=== PATIENT | female | born 1955 | race Caucasian/White ===

== ENCOUNTER → 2018-06-03 09:09 | Outpatient (CLI) | payer OTHER, SELFPAY ==
--- NOTE | 2018-06-03 | DI.MG.S_ITS ---
BILATERAL DIGITAL SCREENING MAMMOGRAM 3D/2D WITH CAD: 06/03/2018 CLINICAL: Routine screening. Family history of breast cancer. Comparison is made to exams dated: 10/22/2016 mammogram, 01/28/2014 mammogram - [facility], and 01/10/2013 mammogram - [facility]. There are scattered fibroglandular elements in both breasts. Current study was also evaluated with a Computer Aided Detection (CAD) system. There are benign calcifications in both breasts. No significant masses, calcifications, or other findings are seen in either breast. There has been no significant interval change. IMPRESSION: There is no mammographic evidence of malignancy. A 1 year screening mammogram is recommended. This exam was interpreted at Station ID: [id number]. NOTE: For mammograms, a report in lay terms will be sent to the patient. Approximately 15% of breast malignancies will not be visualized mammographically. In the management of a palpable breast mass, a negative mammogram must not discourage biopsy of a clinically suspicious lesion. Electronically Signed By: Rigoberto wood/albino:06/05/2018 12:50:04 copy to: LENCHO RANDALL letter sent: Normal Exam ACR BI-RADS Category 2: Benign Finding(s) 3342F
== END ==
PROVIDERS: PCP Internal Medicine; Visit Provider Internal Medicine
DX: Z12.31 Encounter for screening mammogram for malignant neoplasm of breast (principal); Z80.3 Family history of malignant neoplasm of breast
CPT/HCPCS: 77063; 77067

== ENCOUNTER 2019-03-13 07:37 | Emergency (ER) | payer OTHER, SELFPAY ==
[2019-03-13 07:44] VITALS: BP 169/103; PULSE 94; RESP 20; TEMP 37.2; O2SAT 94; BMI 26.6
--- NOTE | 2019-03-13 07:46 | DI.RAD.S_ITS ---
PROCEDURE: XR CHEST 2V INDICATIONS: shortness of breath TECHNIQUE: 2 views of the chest were acquired. COMPARISON: None. FINDINGS: Surgical changes and devices: None. Lungs and pleura: There is indistinct confluent opacities in the right lower lobe. Left lung appears clear. No pleural effusions or pneumothorax. Mediastinum: Mediastinal contours are normal. Heart size is normal. Bones and chest wall: No suspicious bony abnormalities. Soft tissues appear unremarkable. IMPRESSION: 1. Confluent indistinct opacities in the right lower lobe suggestive of developing consolidation possibly due to pneumonia. This may also represent a region of atelectasis. Dictated by: Kale Olivia M.D. on 03/13/2019 at 8:38 Approved by: Kale Olivia M.D. on 03/13/2019 at 8:42
--- NOTE | 2019-03-13 07:59 | ED_ITS ---
HPI - SOB/Dyspnea General Chief Complaint: Shortness of Breath/Dyspnea Stated Complaint: cough,can't sleep,difficulty breathing Time Seen by Provider: 03/13/19 07:47 Source: patient Mode of arrival: Ambulatory History of Present Illness HPI Narrative: Patient comes emergency department complaining of a cough with sputum production for the last 10 days. The patient states she has just been feeling fatigued and generally weak, and has missed work for week and half because of it. Patient states that her is finishing treatment for pneumonia and that she is concerned she may have the same. She states she got the flu shot this season. She states she is otherwise healthy and does not have any underlying heart or lung problems. She does not smoke. Patient states that she has not been running fevers as far she knows. She denies any pain. She states she has been incontinent of urine when she coughs. No nausea vomiting. No sore throat. Patient denies any other complaints at this time. Related Data Home Medications Medication Instructions Recorded Confirmed cetirizine 10 mg PO QDAY #0 tab 12/06/15 fluticasone propionate 1 spray INTRANASAL QDAY #0 12/06/15 hydrochlorothiazide 25 mg PO QDAY #0 12/06/15 levothyroxine 0.112 mg PO QDAY #0 12/06/15 losartan 50 mg PO QDAY #0 12/06/15 montelukast [Singulair] 10 mg PO QDAY #0 tab 12/06/15 potassium chloride 10 meq PO Q DAY #0 12/06/15 Previous Rx's Medication Instructions Recorded doxycycline hyclate 100 mg PO Q12H #20 cap 12/06/15 doxycycline hyclate 100 mg PO BID #14 cap 03/13/19 Allergies Allergy/AdvReac Type Severity Reaction Status Date / Time erythromycin base Allergy Unknown Verified 03/13/19 07:44 [ERYTHROMYCIN BASE] Penicillins [PENICILLINS] Allergy Unknown Verified 03/13/19 07:44 Sulfa (Sulfonamide Allergy Unknown Verified 03/13/19 07:44 Antibiotics) [SULFA (SULFONAMIDE ANTIBIOTICS)] Review of Systems Constitutional Constitutional: Denies chills, Denies fatigue, Denies fever(s), Denies frequent falls, Denies lethargy and Denies weakness Eyes Eyes: Denies change in vision, Denies eye discharge, Denies irritation and Denies loss of vision ENT Ears, Nose, Mouth, and Throat: Denies change in voice, Denies dizziness, Denies neck pain, Denies sore throat and Denies throat swelling Cardiovascular Cardiovascular: Denies chest pain, Denies irregular heart rhythm, Denies lightheadedness, Denies palpitations, Reports dyspnea and Denies orthopnea Respiratory Respiratory: Reports cough, Reports dyspnea and Denies wheezing Gastrointestinal Gastrointestinal: Denies abdominal pain, Denies change in bowel habits, Denies diarrhea, Denies nausea and Denies vomiting Genitourinary Genitourinary: Denies hematuria, Denies flank pain, Denies urinary incontinence and Denies urinary urgency Musculoskeletal Musculoskeletal: Denies back pain, Denies muscle weakness, Denies neck pain, Denies numbness and Denies tingling Integumentary/Breasts Skin/Breast: Denies pruritus, Denies erythema, Denies rash and Denies wounds Neurologic Neurologic: Denies behavioral changes, Denies confusion, Denies dizziness, Denies frequent falls, Denies loss of vision, Denies numbness, Denies tingling and Denies weakness Psychiatric Psychiatric: Denies anxiety, Denies behavioral changes, Denies confusion, Denies depression, Denies homicidal ideation and Denies suicidal ideation Endocrine Endocrine: Denies fatigue, Denies flushing and Denies palpitations Hematologic/Lymphatic Hematologic/Lymphatic: Denies easy bruising Allergic/Immunologic Allergic/Immunologic: Denies urticaria, Denies throat swelling and Denies wheezing Patient History Medical History HTN (hypertension) (Acute) Social History Smoking Status: Never smoker Smoking Status: Never smoker Substance Use Type: does not use Exam Initial Vital Signs Initial Vital Signs: Vital Signs Temperature 98.9 F 03/13/19 07:44 Pulse Rate 94 H 03/13/19 07:44 Respiratory Rate 20 03/13/19 07:44 Blood Pressure 169/103 H 03/13/19 07:44 Pulse Oximetry 94 03/13/19 07:44 Const General: cooperative and well developed Nutritional Appearance: well nourished Orientation: alert, awake, oriented x3 and not confused HENMT Head: normocephalic and atraumatic Ears: external ears normal Nose: external nose normal and No nasal discharge Face and sinus: face symmetric and No dry mucous membranes Mouth: oral mucosae normal and moist mucous membranes Teeth and gingiva: dentition normal Eyes General: appearance normal, both eyes and all related structures Eyelids: eyelids normal Conjunctivae: conjunctivae normal Sclera: sclerae normal Pupils: PERRL EOM: EOM intact bilaterally Neck Neck: normal visual inspection, trachea midline, No lymphadenopathy, No midline deformity and No JVD Lymphatic: No lymphedema Chest Chest: normal inspection of the chest Resp Effort & Inspection: normal respiratory effort, able to speak in complete sentences, no respiratory distress and no use of accessory muscles Auscultation: no rhonchi and no wheezes Other: Clear to auscultation bilaterally, other than mild crackles in the left lower lobe. Cardio Rate: regular rate Rhythm: regular rhythm Heart Sounds: no click, no gallops, no murmurs and no rubs Pulses: normal peripheral pulses GI Inspection: non-distended Palpation: soft, no hepatosplenomegaly, No guarding, No pulsatile mass and No tender Auscultation: normal bowel sounds Back/Spine/Pelvis Back: No CVA tenderness Cervical Spine: cervical ROM normal and No pain with cervical ROM Thoracic/Lumbar Spine: thoracic and lumbar spine normal to inspection Skin General: no rashes or lesions noted, No jaundice and No petechiae Neuro General: alert, oriented x3, gait normal and no focal motor deficits Speech: speech normal Extrem General: full ROM, no clubbing, cyanosis or edema, no pedal edema and no calf tenderness Psych Appearance: well kempt Mental Status: mental status grossly normal Attitude: cooperative Thought Content: normal and suicidality Judgment: judgment good Course Course Course Narrative: Patient was worked up with labs, EKG, and chest x-ray. Found have a small area of atelectasis versus pneumonia, and was started on antibiotics for this. The patient was found to have desaturations when relaxed and breathing shallowly, but she ambulated throughout the emergency department, including to and from the bathroom several times, without difficulty and without respiratory complaints. It was also found that when the patient would awaken and started conversing or breathing more deeply, her sats immediately improved. An ABG was performed by respiratory, but was contaminated with venous blood, so was unreliable. I discussed all this with the patient, who desired to go home. I felt this was reasonable. We've discussed the findings on workup, as well as the need for antibiotics. We've discussed home management of the symptoms, as well as the usual indications for return. Orders Ordered: Discontinued Medications Albuterol (Ventolin) 2.5 mg INH NOW ONE Stop: 03/13/19 10:11 Last Admin: 03/13/19 10:15 Dose: 2.5 mg Documented by: GIO Albuterol/Ipratropium (Duoneb) 3 ml INH NOW ONE Stop: 03/13/19 08:05 Last Admin: 03/13/19 08:22 Dose: 3 ml Documented by: GIO Doxycycline Hyclate (Vibramycin) 100 mg PO NOW ONE Stop: 03/13/19 08:51 Last Admin: 03/13/19 09:07 Dose: 100 mg Documented by: PINO Ceftriaxone Sodium/Dextrose (Rocephin) 2 gm in 50 mls @ 100 mls/hr IV NOW ONE Stop: 03/13/19 09:19 Last Infusion: 03/13/19 09:32 Dose: 0 mls/hr Documented by: Admin: 03/13/19 09:07 Dose: 100 mls/hr Documented by: PINO Prednisone (Deltasone) 60 mg PO NOW ONE Stop: 03/13/19 08:05 Last Admin: 03/13/19 08:15 Dose: 60 mg Documented by: MARNI Vital Signs Vital signs: Vital Signs - 8 hr 03/13/19 07:44 Temperature 98.9 F Pulse Rate 94 H Respiratory Rate 20 Blood Pressure 169/103 H Pulse Oximetry 94 MDM - SOB/Dyspnea Medical Records Attestation: I reviewed the patient's medical records. Lab Data Attestation: I reviewed the patient's lab results. Result diagrams: 03/13/19 08:02 03/13/19 08:02 Labs: Lab Results 03/13/19 03/13/19 03/13/19 Range/Units 08:02 08:02 08:02 WBC 12.0 H (4.5-11.0) X10^3/uL RBC 4.08 (4.0-5.2) X10^6/uL Hgb 12.6 (12.0-16.0) g/dL Hct 35.9 L (36-46) % MCV 87.9 (80-100) fL MCH 30.8 (26-34) PG MCHC 35.0 (30-36) % RDW 14.0 (11.6-14.8) % Plt Count 220 (150-400) X10^3/uL Neut % (Auto) 78.5 H (50-75) % Lymph % (Auto) 11.6 L (25-40) % [place] % (Auto) 7.2 (3-14) % Eos % (Auto) 2.2 (2-4) % Baso % (Auto) 0.5 (0-2) % Neut # (Auto) 9400 H (3290-7294) /uL Lymph # (Auto) 1400 (9214-4424) /uL [place] # (Auto) 900 (0-900) /uL Eos # (Auto) 300 (0-450) /uL Baso # (Auto) 100 (0-100) /uL ABG pH (7.35-7.45) ABG pCO2 (35-45) mmHg ABG pO2 (80-100) mmHg ABG HCO3 (22-26) mmol/L ABG Total CO2 (21-31) mmol/L ABG O2 Saturation (95-100) % ABG Base Excess (-2-2) mmol/L FiO2 Sodium 136 L (137-145) mmol/L Potassium 4.0 (3.4-5.1) mmol/L Chloride 94 L (98-107) mmol/L Carbon Dioxide 34 H (22-32) mmol/L BUN 12 (7-17) mg/dL Creatinine 0.80 (0.52-1.04) mg/dL Estimated GFR > 60.0 (>60) mL/min BUN/Creatinine Ratio 15.0 (6-22) Glucose 154 H (80-110) mg/dL Lactate 1.0 (0.7-2.1) mmol/L Calcium 10.1 (8.4-10.2) mg/dL Total Bilirubin 0.7 (0.2-1.3) mg/dL AST 23 (14-36) IU/L ALT 21 (<35) IU/L Alkaline Phosphatase 97 (38-126) U/L Total Protein 7.3 (6.3-8.2) g/dL Albumin 4.1 (3.5-5.0) g/dL Globulin 3.2 (1.7-4.1) g/dL Albumin/Globulin Ratio 1.3 (1.0-2.8) Influenza A (RT-PCR) (NEGATIVE) Influenza B (RT-PCR) (NEGATIVE) 03/13/19 03/13/19 Range/Units 08:50 10:52 WBC (4.5-11.0) X10^3/uL RBC (4.0-5.2) X10^6/uL Hgb (12.0-16.0) g/dL Hct (36-46) % MCV (80-100) fL MCH (26-34) PG MCHC (30-36) % RDW (11.6-14.8) % Plt Count (150-400) X10^3/uL Neut % (Auto) (50-75) % Lymph % (Auto) (25-40) % [place] % (Auto) (3-14) % Eos % (Auto) (2-4) % Baso % (Auto) (0-2) % Neut # (Auto) (3460-4473) /uL Lymph # (Auto) (8146-7973) /uL [place] # (Auto) (0-900) /uL Eos # (Auto) (0-450) /uL Baso # (Auto) (0-100) /uL ABG pH 7.46 H (7.35-7.45) ABG pCO2 40.0 (35-45) mmHg ABG pO2 52 L (80-100) mmHg ABG HCO3 29 H (22-26) mmol/L ABG Total CO2 30 (21-31) mmol/L ABG O2 Saturation 88 L (95-100) % ABG Base Excess 5.0 H (-2-2) mmol/L FiO2 0.21 Sodium (137-145) mmol/L Potassium (3.4-5.1) mmol/L Chloride (98-107) mmol/L Carbon Dioxide (22-32) mmol/L BUN (7-17) mg/dL Creatinine (0.52-1.04) mg/dL Estimated GFR (>60) mL/min BUN/Creatinine Ratio (6-22) Glucose (80-110) mg/dL Lactate (0.7-2.1) mmol/L Calcium (8.4-10.2) mg/dL Total Bilirubin (0.2-1.3) mg/dL AST (14-36) IU/L ALT (<35) IU/L Alkaline Phosphatase (38-126) U/L Total Protein (6.3-8.2) g/dL Albumin (3.5-5.0) g/dL Globulin (1.7-4.1) g/dL Albumin/Globulin Ratio (1.0-2.8) Influenza A (RT-PCR) Flu a negative (NEGATIVE) Influenza B (RT-PCR) Flu b negative (NEGATIVE) Imaging Data Chest x-ray: Radiologist's Impression: We've discussed Discharge Plan Departure Patient Disposition: Home Clinical Impression: Community acquired pneumonia Qualifiers: Laterality: right Lung location: lower lobe of lung Qualified Code(s): J18.9 - Pneumonia, unspecified organism Discharge Date/Time: 03/13/19 11:25 Instructions: DI for Pneumonia -- Adult, DI for Viral Upper Respiratory Infection -- Adult Activity Restrictions/Additional Instructions: Your labs look good. Your chest x-ray shows a small area of pneumonia in the bottom of your right lung. This should clear up easily with antibiotics, which have been started today. Please take the remainder of your antibiotics every day, as directed, until the course is finished. If you do not notice any improvement in your symptoms by the time the antibiotics are done, please follow-up with your primary care physician. Prescriptions: New doxycycline hyclate 100 mg capsule 100 mg PO BID Qty: 14 RF: 0 No Action losartan 50 MG tablet 50 mg PO QDAY Qty: 0 RF: 0 hydrochlorothiazide 25 MG tablet 25 mg PO QDAY Qty: 0 RF: 0 levothyroxine 112 MCG tablet 0.112 mg PO QDAY Qty: 0 RF: 0 potassium chloride 10 MEQ capsule, extended release 10 meq PO Q DAY Qty: 0 RF: 0 cetirizine 10 MG tablet 10 mg PO QDAY Qty: 0 RF: 0 montelukast [Singulair] 10 MG tablet 10 mg PO QDAY Qty: 0 RF: 0 fluticasone propionate 16 GM spray,suspension 1 spray Intranasal QDAY Qty: 0 RF: 0 doxycycline hyclate 100 MG capsule 100 mg PO Q12H Qty: 20 RF: 0 Referrals: Tracee Orantes MD [Primary Care Provider] -
[2019-03-13 08:11] LABS: Add Manual Diff / Slide Review NO; Basophils Absolute Auto 100 /uL (0-100); Basophils Percent Auto 0.5 % (0-2); Eosinophils Absolute Auto 300 /uL (0-450); Eosinophils Percent Auto 2.2 % (2-4); Hematocrit 35.9 % (36-46); Hemoglobin 12.6 g/dL (12.0-16.0); Lymphocytes Absolute Auto 1400 /uL (1100-4500); Lymphocytes Percent Auto 11.6 % (25-40); Mean Corpuscular Hemoglobin 30.8 PG (26-34); Mean Corpuscular Volume 87.9 fL (80-100); Monocytes Absolute Auto 900 /uL (0-900); Monocytes Percent Auto 7.2 % (3-14); Neutrophils Absolute Auto 9400 /uL (1500-7000); Neutrophils Percent Auto 78.5 % (50-75); Platelet Count 220 X10^3/uL (150-400); Red Blood Cell Count 4.08 X10^6/uL (4.0-5.2)
[2019-03-13] MEDS: predniSONE 20 MG TABLET 60 MG PO (08:15)
[2019-03-13] MEDS: ALBUTEROL/IPRATROPIUM 3 ML AMPUL INH (08:22)
[2019-03-13 08:23] LABS: Alanine Aminotransferase 21 IU/L (<35); Albumin 4.1 g/dL (3.5-5.0); Albumin Globulin Ratio 1.3 (1.0-2.8); Alkaline Phosphatase 97 U/L (38-126); Aspartate Aminotransferase 23 IU/L (14-36); Bilirubin Total 0.7 mg/dL (0.2-1.3); Blood Urea Nitrogen 12 mg/dL (7-17); Calcium 10.1 mg/dL (8.4-10.2); Carbon Dioxide 34 mmol/L (22-32); Chloride 94 mmol/L (98-107); Estimated Glomerular Filt Rate > 60.0 mL/min (>60); Globulin 3.2 g/dL (1.7-4.1); Glucose 154 mg/dL (80-110); HEMOLYSIS < 15 (0-50); Sodium 136 mmol/L (137-145); Total Protein 7.3 g/dL (6.3-8.2)
[2019-03-13 08:29] VITALS: PULSE 94; RESP 18; O2SAT 98
[2019-03-13] MEDS: CEFTRIAXONE 2 GM/50 ML FROZ.PIGGY IV (09:07)
[2019-03-13] MEDS: DOXYCYCLINE HYCLATE 100 MG TABLET PO (09:07)
[2019-03-13 09:33] VITALS: BP 143/75; PULSE 88; RESP 24; TEMP 36.6; O2SAT 96
[2019-03-13 09:36] LABS: Influenza A - CEPHEID Flu A NEGATIVE (NEGATIVE); Influenza B - CEPHEID Flu B NEGATIVE (NEGATIVE)
--- NOTE | 2019-03-13 10:08 | PC.NURSE ---
Patient with O2 saturations mid 80's but increases to 100% with cough and deep breathing exercises; Patient able to talk in full sentences and ambulated to bathroom with no difficulties;
[2019-03-13] MEDS: ALBUTEROL 2.5 MG/3 ML NEB (ADULT) INH (10:15)
[2019-03-13 10:17] VITALS: PULSE 88; RESP 18; O2SAT 96
--- NOTE | 2019-03-13 10:33 | PC.NURSE ---
Patient ambulated to bathroom - patient O2 saturation 90% after ambulation; Patient states I feel miserable and short of breath because I can't take a deep breath in. It make me cough.
[2019-03-13 11:11] LABS: HCO3 ABG 29 mmol/L (22-26); Oxygen Saturation ABG 88 % (95-100); PO2 ABG 52 mmHg (80-100); TCO2 ABG 30 mmol/L (21-31); pH ABG 7.46 (7.35-7.45)
[2019-03-13 11:12] LABS: Fractionated Inspired Oxygen 0.21
[2019-03-13 11:25] VITALS: BP 136/64; PULSE 88; RESP 22; TEMP 36.4; O2SAT 95
== END 2019-03-13 11:25 | disposition home or self-care (01) ==
PROVIDERS: Emergency Provider Emergency Medicine; PCP Internal Medicine
DX: J18.9 Pneumonia, unspecified organism (principal); I10 Essential (primary) hypertension; R06.02 Shortness of breath
CPT/HCPCS: 36415; 36600; 71046; 80053; 82805; 83605; 85025; 87502; 93005; 94640; 96365; 99284; 99285; J0696; J7613

== ENCOUNTER 2019-05-17 08:18 | Observation (INO) | payer OTHER, SELFPAY ==
[2019-05-17] VITALS (15 sets, daily range): BP systolic 118–167; BP diastolic 64–83; PULSE 74–97; RESP 14–25; TEMP 35.7–37.9; O2SAT 92–97; BMI 27.4
--- NOTE | 2019-05-17 08:34 | ED_ITS ---
HPI - URI/Sore Throat General Chief Complaint: Upper Respiratory Symptoms Stated Complaint: bad cough,fever last night, chills Time Seen by Provider: 05/17/19 08:20 Source: patient Mode of arrival: Ambulatory Limitations: no limitations History of Present Illness HPI Narrative: 64-year-old female nonsmoker presents with her in the chief complaint of a few days of headache, fever, cough that reminds her of the pneumonia she presented with in February. She has had no nausea or vomiting. She denies any change in bowel habits. She denies any dysuria, frequency or urgency. She denies recent travel or exposure to persons with known or suspected subramanian virus. Complaint: fever and cough Onset (ago): day(s) Duration: constant Severity: moderate Relieving factors: nothing Exacerbating factors: nothing Description of mucous: clear Able to tolerate fluids by mouth: Yes Context: sick contacts Associated symptoms: fever Treatments prior to arrival: none Related Data Home Medications Medication Instructions Recorded Confirmed cetirizine 10 mg PO DAILY #0 tab 12/06/15 05/17/19 fluticasone propionate 1 spray INTRANASAL DAILY #0 12/06/15 05/17/19 hydrochlorothiazide 25 mg PO DAILY #0 12/06/15 05/17/19 levothyroxine 0.112 mg PO DAILY #0 12/06/15 05/17/19 montelukast [Singulair] 10 mg PO QPM #0 tab 12/06/15 05/17/19 Super B Vitamin 1 tab PO DAILY 05/17/19 05/17/19 cholecalciferol (vitamin D3) 5,000 unit PO DAILY 05/17/19 05/17/19 [Vitamin D3] oxybutynin chloride 10 mg PO DAILY 05/17/19 05/17/19 potassium chloride 10 meq PO DAILY 05/17/19 05/17/19 propranolol 120 mg PO QPM 05/17/19 05/17/19 trazodone 50 mg PO QPM 05/17/19 05/17/19 Allergies Allergy/AdvReac Type Severity Reaction Status Date / Time erythromycin base Allergy Unknown Verified 05/17/19 08:31 [ERYTHROMYCIN BASE] Penicillins [PENICILLINS] Allergy Unknown Verified 05/17/19 08:31 Sulfa (Sulfonamide Allergy Unknown Verified 05/17/19 08:31 Antibiotics) [SULFA (SULFONAMIDE ANTIBIOTICS)] Review of Systems Constitutional Constitutional: Denies fatigue, Reports fever(s), Denies frequent falls, Denies lethargy and Denies weakness Eyes Eyes: Denies change in vision, Denies eye discharge, Denies irritation and Denies loss of vision ENT Ears, Nose, Mouth, and Throat: Denies change in voice, Denies dizziness, Denies neck pain, Denies sore throat and Denies throat swelling Cardiovascular Cardiovascular: Denies chest pain, Denies irregular heart rhythm, Denies lightheadedness, Denies palpitations, Denies dyspnea, Denies dyspnea on exertion and Denies orthopnea Respiratory Respiratory: Reports cough, Denies dyspnea, Denies dyspnea on exertion and Reports wheezing Gastrointestinal Gastrointestinal: Denies abdominal pain, Denies change in bowel habits, Denies diarrhea, Denies nausea and Denies vomiting Genitourinary Genitourinary: Denies hematuria, Denies flank pain, Denies urinary incontinence and Denies urinary urgency Musculoskeletal Musculoskeletal: Denies back pain, Denies muscle weakness, Denies neck pain, Denies numbness and Denies tingling Integumentary/Breasts Skin/Breast: Denies pruritus, Denies erythema, Denies rash and Denies wounds Neurologic Neurologic: Denies behavioral changes, Denies confusion, Denies dizziness, Denies frequent falls, Denies loss of vision, Denies numbness, Denies tingling and Denies weakness Psychiatric Psychiatric: Denies anxiety, Denies behavioral changes, Denies confusion, Denies depression, Denies homicidal ideation and Denies suicidal ideation Endocrine Endocrine: Denies fatigue, Denies flushing and Denies palpitations Hematologic/Lymphatic Hematologic/Lymphatic: Denies easy bruising Allergic/Immunologic Allergic/Immunologic: Denies urticaria, Denies throat swelling and Reports wheezing Patient History Medical History (Updated 05/17/19 @ 16:48 by Vinny Yang MD) Allergic rhinitis (Acute) HTN (hypertension) (Acute) Hypothyroidism (acquired) (Acute) Social History household members: spouse Smoking Status: Never smoker Smoking Status: Never smoker Substance Use Type: does not use Exam Narrative Exam Narrative: GENERAL: [64] year old patient appears stated age. Well- nourished, well-developed patient, in mild distress. HEAD: Atraumatic. Normocephalic. EYES: Pupils equal round and reactive. Extraocular motions intact. No scleral icterus. No injection or drainage. ENT: Nose without bleeding, purulent drainage. Throat without erythema, tonsillar hypertrophy or exudate. Airway patent. NECK: Trachea midline. Non tender CARDIOVASCULAR: Regular rate and rhythm without murmurs, gallops, or rubs. RESPIRATORY: Clear to auscultation. Breath sounds equal bilaterally. No wheezes, rales, or rhonchi. Deep breath illicits harsh, coarse cough GASTROINTESTINAL: Abdomen soft, non-tender, nondistended. EXTREMITIES: No edema or joint tenderness. BACK: Nontender without deformity or crepitance. No flank tenderness. NEURO: AOx3. SKIN: No rash or erythema of visible areas Initial Vital Signs Initial Vital Signs: Vital Signs Temperature 100.0 F H 05/17/19 08:31 Pulse Rate 90 05/17/19 08:31 Respiratory Rate 20 05/17/19 08:31 Blood Pressure 141/74 H 05/17/19 08:31 Pulse Oximetry 94 05/17/19 08:31 Course Course Course Narrative: Patient was doing well and initially evaluation was minimal with flu swab and chest x-ray. She was given bronchodilator due to her bronchospastic cough and over the course of the visit her symptoms worsened including heart rate raising to the 90s, respirations into the 20s with a rising temp. Additionally her saturations were dropping into the 80s. At this point full septic workup including antibiotics, blood cultures, lactate and ABG were ordered. Orders Ordered: ED Orders 05/17/19 09:50 Arterial Blood Gas Stat 05/17/19 10:00 Complete Blood Count AUTO DIFF Stat Comprehensive Metabolic Panel Stat D Dimer Stat Lactate (Lactic Acid) Stat Procalcitonin Stat 05/17/19 10:25 Blood Culture Stat 05/17/19 12:08 Respiratory Panel (Film Array) Stat Acetaminophen (Tylenol) 650 mg PO Q4HR PRN PRN Reason: Fever/Mild Pain (1-3) Last Admin: 05/17/19 16:59 Dose: 650 mg Documented by: DEEPTHI Al Hydrox/Mg Hydrox/Simethicone (Maalox Plus) 30 ml PO Q6HR PRN PRN Reason: Dyspepsia Albuterol (Ventolin) 2.5 mg INH [id number] [facility] Last Admin: 05/17/19 17:37 Dose: Not Given Documented by: IRINEO Enoxaparin Sodium (Lovenox) 40 mg SUBCUT DAILY [facility] Fluticasone Propionate (Flonase) 1 spray NASAL DAILY [facility] Hydrochlorothiazide (Hydrochlorothiazide) 25 mg PO DAILY [facility] Ceftriaxone Sodium/Dextrose (Rocephin) 1 gm in 50 mls @ 100 mls/hr IV DAILY [facility] Azithromycin 500 mg/ Dextrose 250 mls @ 250 mls/hr IV Q24H [facility] Levothyroxine Sodium (Synthroid) 112 mcg PO 0600 [facility] Loratadine (Claritin) 10 mg PO DAILY [facility] Magnesium Hydroxide (Milk Of Magnesia) 30 ml PO DAILY PRN PRN Reason: Constipation Montelukast Sodium (Singulair) 10 mg PO QPM [facility] Last Admin: 05/17/19 16:20 Dose: 10 mg Documented by: DEEPTHI Oxybutynin Chloride (Ditropan Xl) 10 mg PO DAILY [facility] Potassium Chloride (Klor-Con M10) 10 meq PO DAILY [facility] Prednisone (Deltasone) 40 mg PO DAILY [facility] Propranolol HCl (Inderal La) 120 mg PO QPM [facility] Last Admin: 05/17/19 16:42 Dose: 120 mg Documented by: DEEPTHI Trazodone HCl (Desyrel) 50 mg PO QPM [facility] Discontinued Medications Acetaminophen (Tylenol) 650 mg PO NOW ONE Stop: 05/17/19 09:14 Last Admin: 05/17/19 09:18 Dose: 650 mg Documented by: DAMIAN Albuterol/Ipratropium (Duoneb) 3 ml INH NOW ONE Stop: 05/17/19 09:21 Last Admin: 05/17/19 09:35 Dose: 3 ml Documented by: IRINEO Sodium Chloride (Normal Saline 0.9%) 2,313.33 mls @ 771.11 mls/hr 30 ml/kg infuse over 3 hr (2313.33 ml) IV NOW ONE Stop: 05/17/19 12:49 Last Infusion: 05/17/19 12:44 Dose: 700 mls/hr Documented by: Infusion: 05/17/19 12:16 Dose: 0 mls/hr Documented by: Admin: 05/17/19 10:47 Dose: 771.11 mls/hr Documented by: DAMIAN Ceftriaxone Sodium/Dextrose (Rocephin) 1 gm in 50 mls @ 100 mls/hr IV NOW ONE Stop: 05/17/19 10:19 Last Infusion: 05/17/19 11:03 Dose: 0 mls/hr Documented by: Admin: 05/17/19 10:47 Dose: 100 mls/hr Documented by: DAMIAN Azithromycin 500 mg/ Dextrose 250 mls @ 250 mls/hr IV NOW ONE Stop: 05/17/19 09:51 Last Infusion: 05/17/19 12:17 Dose: 0 mls/hr Documented by: Admin: 05/17/19 11:03 Dose: 250 mls/hr Documented by: DAMIAN Methylprednisolone (Solu-Medrol 125 Mg Vial) 60 mg IV NOW ONE Stop: 05/17/19 14:38 Last Admin: 05/17/19 16:20 Dose: 60 mg Documented by: DEEPTHI Trazodone HCl (Desyrel) 50 mg PO QPM BLAIR Vital Signs Vital signs: Vital Signs - 8 hr 05/17/19 11:16 Pulse Rate 87 Respiratory Rate 22 Blood Pressure [Left Arm] 134/68 Pulse Oximetry 95 MDM - URI/Sore Throat Lab Data Result diagrams: 05/17/19 10:00 05/17/19 10:00 Labs: Lab Results 05/17/19 05/17/19 05/17/19 Range/Units 08:30 09:50 10:00 WBC 7.4 (4.5-11.0) X10^3/uL RBC 4.38 (4.0-5.2) X10^6/uL Hgb 13.5 (12.0-16.0) g/dL Hct 39.0 (36-46) % MCV 88.9 (80-100) fL MCH 30.9 (26-34) PG MCHC 34.7 (30-36) % RDW 13.4 (11.6-14.8) % Plt Count 142 L (150-400) X10^3/uL Neut % (Auto) 82.2 H (50-75) % Lymph % (Auto) 8.8 L (25-40) % [place] % (Auto) 7.1 (3-14) % Eos % (Auto) 1.4 L (2-4) % Baso % (Auto) 0.5 (0-2) % Neut # (Auto) 6100 (6285-1754) /uL Lymph # (Auto) 600 L (1198-8774) /uL [place] # (Auto) 500 (0-900) /uL Eos # (Auto) 100 (0-450) /uL Baso # (Auto) 0 (0-100) /uL D-Dimer (<230) ng/mL ABG pH 7.45 (7.35-7.45) ABG pCO2 46.4 H (35-45) mmHg ABG pO2 67 L (80-100) mmHg ABG HCO3 32 H (22-26) mmol/L ABG Total CO2 33 H (21-31) mmol/L ABG O2 Saturation 94 L (95-100) % ABG Base Excess 8.0 H (-2-2) mmol/L FiO2 0.28 Sodium (137-145) mmol/L Potassium (3.4-5.1) mmol/L Chloride (98-107) mmol/L Carbon Dioxide (22-32) mmol/L BUN (7-17) mg/dL Creatinine (0.52-1.04) mg/dL Estimated GFR (>60) mL/min BUN/Creatinine Ratio (6-22) Glucose (80-110) mg/dL Lactate (0.7-2.1) mmol/L Calcium (8.4-10.2) mg/dL Total Bilirubin (0.2-1.3) mg/dL AST (14-36) IU/L ALT (<35) IU/L Alkaline Phosphatase (38-126) U/L Total Protein (6.3-8.2) g/dL Albumin (3.5-5.0) g/dL Globulin (1.7-4.1) g/dL Albumin/Globulin Ratio (1.0-2.8) Procalcitonin (<0.5) ng/mL Chlamy pneumoniae PCR (Not Detect) Adenovirus (PCR) (Not Detect) B.parapertussis DNA PCR (Not Detect) Coronavirus OC43 (PCR) (Not Detect) Coronavirus HKU1 (PCR) (Not Detect) Coronavirus 229E (PCR) (Not Detect) Coronavirus NL63 (PCR) (Not Detect) Human Metapneumovir PCR (Not Detect) Influenza A (RT-PCR) Flu a negative (NEGATIVE) Influenza Type A (PCR) (Not Detect) Influenza B (RT-PCR) Flu b negative (NEGATIVE) Influenza Type B (PCR) (Not Detect) M. pneumoniae (PCR) (Not Detect) Parainfluenza 1 (PCR) (Not Detect) Parainfluenza 2 (PCR) (Not Detect) Parainfluenza 3 (PCR) (Not Detect) Parainfluenza 4 (PCR) (Not Detect) RSV (PCR) (Not Detect) Entero/Rhino (PCR) (Not Detect) 05/17/19 05/17/19 05/17/19 Range/Units 10:00 10:00 10:00 WBC (4.5-11.0) X10^3/uL RBC (4.0-5.2) X10^6/uL Hgb (12.0-16.0) g/dL Hct (36-46) % MCV (80-100) fL MCH (26-34) PG MCHC (30-36) % RDW (11.6-14.8) % Plt Count (150-400) X10^3/uL Neut % (Auto) (50-75) % Lymph % (Auto) (25-40) % [place] % (Auto) (3-14) % Eos % (Auto) (2-4) % Baso % (Auto) (0-2) % Neut # (Auto) (9266-7324) /uL Lymph # (Auto) (3248-2281) /uL [place] # (Auto) (0-900) /uL Eos # (Auto) (0-450) /uL Baso # (Auto) (0-100) /uL D-Dimer (<230) ng/mL ABG pH (7.35-7.45) ABG pCO2 (35-45) mmHg ABG pO2 (80-100) mmHg ABG HCO3 (22-26) mmol/L ABG Total CO2 (21-31) mmol/L ABG O2 Saturation (95-100) % ABG Base Excess (-2-2) mmol/L FiO2 Sodium 135 L (137-145) mmol/L Potassium 4.0 (3.4-5.1) mmol/L Chloride 93 L (98-107) mmol/L Carbon Dioxide 35 H (22-32) mmol/L BUN 12 (7-17) mg/dL Creatinine 0.90 (0.52-1.04) mg/dL Estimated GFR > 60.0 (>60) mL/min BUN/Creatinine Ratio 13.3 (6-22) Glucose 140 H (80-110) mg/dL Lactate 0.7 (0.7-2.1) mmol/L Calcium 10.1 (8.4-10.2) mg/dL Total Bilirubin 1.1 (0.2-1.3) mg/dL AST 29 (14-36) IU/L ALT 20 (<35) IU/L Alkaline Phosphatase 70 (38-126) U/L Total Protein 7.8 (6.3-8.2) g/dL Albumin 4.5 (3.5-5.0) g/dL Globulin 3.3 (1.7-4.1) g/dL Albumin/Globulin Ratio 1.4 (1.0-2.8) Procalcitonin 0.10 (<0.5) ng/mL Chlamy pneumoniae PCR (Not Detect) Adenovirus (PCR) (Not Detect) B.parapertussis DNA PCR (Not Detect) Coronavirus OC43 (PCR) (Not Detect) Coronavirus HKU1 (PCR) (Not Detect) Coronavirus 229E (PCR) (Not Detect) Coronavirus NL63 (PCR) (Not Detect) Human Metapneumovir PCR (Not Detect) Influenza A (RT-PCR) (NEGATIVE) Influenza Type A (PCR) (Not Detect) Influenza B (RT-PCR) (NEGATIVE) Influenza Type B (PCR) (Not Detect) M. pneumoniae (PCR) (Not Detect) Parainfluenza 1 (PCR) (Not Detect) Parainfluenza 2 (PCR) (Not Detect) Parainfluenza 3 (PCR) (Not Detect) Parainfluenza 4 (PCR) (Not Detect) RSV (PCR) (Not Detect) Entero/Rhino (PCR) (Not Detect) 05/17/19 05/17/19 Range/Units 10:00 12:08 WBC (4.5-11.0) X10^3/uL RBC (4.0-5.2) X10^6/uL Hgb (12.0-16.0) g/dL Hct (36-46) % MCV (80-100) fL MCH (26-34) PG MCHC (30-36) % RDW (11.6-14.8) % Plt Count (150-400) X10^3/uL Neut % (Auto) (50-75) % Lymph % (Auto) (25-40) % [place] % (Auto) (3-14) % Eos % (Auto) (2-4) % Baso % (Auto) (0-2) % Neut # (Auto) (7240-8204) /uL Lymph # (Auto) (5170-3369) /uL [place] # (Auto) (0-900) /uL Eos # (Auto) (0-450) /uL Baso # (Auto) (0-100) /uL D-Dimer 456 H (<230) ng/mL ABG pH (7.35-7.45) ABG pCO2 (35-45) mmHg ABG pO2 (80-100) mmHg ABG HCO3 (22-26) mmol/L ABG Total CO2 (21-31) mmol/L ABG O2 Saturation (95-100) % ABG Base Excess (-2-2) mmol/L FiO2 Sodium (137-145) mmol/L Potassium (3.4-5.1) mmol/L Chloride (98-107) mmol/L Carbon Dioxide (22-32) mmol/L BUN (7-17) mg/dL Creatinine (0.52-1.04) mg/dL Estimated GFR (>60) mL/min BUN/Creatinine Ratio (6-22) Glucose (80-110) mg/dL Lactate (0.7-2.1) mmol/L Calcium (8.4-10.2) mg/dL Total Bilirubin (0.2-1.3) mg/dL AST (14-36) IU/L ALT (<35) IU/L Alkaline Phosphatase (38-126) U/L Total Protein (6.3-8.2) g/dL Albumin (3.5-5.0) g/dL Globulin (1.7-4.1) g/dL Albumin/Globulin Ratio (1.0-2.8) Procalcitonin (<0.5) ng/mL Chlamy pneumoniae PCR Not detected (Not Detect) Adenovirus (PCR) Not detected (Not Detect) B.parapertussis DNA PCR Not detected (Not Detect) Coronavirus OC43 (PCR) Not detected (Not Detect) Coronavirus HKU1 (PCR) Not detected (Not Detect) Coronavirus 229E (PCR) Not detected (Not Detect) Coronavirus NL63 (PCR) Not detected (Not Detect) Human Metapneumovir PCR Detected H (Not Detect) Influenza A (RT-PCR) (NEGATIVE) Influenza Type A (PCR) Not detected (Not Detect) Influenza B (RT-PCR) (NEGATIVE) Influenza Type B (PCR) Not detected (Not Detect) M. pneumoniae (PCR) Not detected (Not Detect) Parainfluenza 1 (PCR) Not detected (Not Detect) Parainfluenza 2 (PCR) Not detected (Not Detect) Parainfluenza 3 (PCR) Not detected (Not Detect) Parainfluenza 4 (PCR) Not detected (Not Detect) RSV (PCR) Not detected (Not Detect) Entero/Rhino (PCR) Not detected (Not Detect) Imaging Data Chest x-ray: Radiologist's Impression: [address] [address] XRay Report Signed Patient: Nohemi Red MMR#: [id number] : [id number]:[id number] Age/Sex: 64 / FDate of Service: 05/17/19 Loc: ED Accession Number: [id number] Procedure: XR chest 2V Ordering Provider: Max Smalls D.O. PROCEDURE: XR CHEST 2V INDICATIONS: cough, fever TECHNIQUE: 2 views of the chest were acquired. [facility]. FINDINGS: Surgical changes and devices: Cholecystectomy clips. Lungs and pleura: There is slight increased retrocardiac streaky appearance seen on the lateral view compared to 03/13/19. No pleural effusions or pneumothorax. Mediastinum: Mediastinal contours are normal. Heart size is enlarged. Bones and chest wall: No suspicious bony abnormalities. Soft tissues appear unremarkable. IMPRESSION: Slight increased retrocardiac streaky opacities on lateral view as above. Developing airspace disease such as pneumonia cannot be excluded. Dictated by: Sabrina Menendez M.D. on 05/17/2019 at 9:15 Approved by: Sabrina Menendez M.D. on 05/17/2019 at 9:16 MDM Narrative Medical decision making narrative: Patient with upper respiratory complaints x5 days with reassuring vital signs and exam presents with concern for flu and community-acquired pneumonia. Flu swab negative, chest x-ray shows what appears to be an early pneumonia. Discharge Plan Departure Patient Disposition: Admitted As Inpatient Clinical Impression: Pneumonia Qualifiers: Pneumonia type: due to unspecified organism Laterality: left Lung location: unspecified part of lung Qualified Code(s): J18.9 - Pneumonia, unspecified organism Sepsis with acute hypoxic respiratory failure Qualifiers: Sepsis type: sepsis due to unspecified organism Severe sepsis shock status: without septic shock Qualified Code(s): A41.9 - Sepsis, unspecified organism Discharge Date/Time: 05/17/19 12:20 Instructions: DI for Pneumonia -- Adult Additional Instructions: *You have been diagnosed with [acute community-acquired pneumonia] *What to do: *Take medications as directed *Follow up with your primary care provider in 2-3 days, call for an appointment. Let them know you were seen in the Emergency Department and that we ask that you be seen in follow up *Return to ER if you should have any new, worsening or concerning symptoms Referrals: Lencho Sawyer DO [Primary Care Provider] - Admit Date/Time: 05/17/19 12:08 Admit Provider: Annamarie Arias
--- NOTE | 2019-05-17 08:38 | DI.RAD.S_ITS ---
PROCEDURE: XR CHEST 2V INDICATIONS: cough, fever TECHNIQUE: 2 views of the chest were acquired. COMPARISON: [facility], CR, XR CHEST 2V, 03/13/2019, 8:02. FINDINGS: Surgical changes and devices: Cholecystectomy clips. Lungs and pleura: There is slight increased retrocardiac streaky appearance seen on the lateral view compared to 03/13/19. No pleural effusions or pneumothorax. Mediastinum: Mediastinal contours are normal. Heart size is enlarged. Bones and chest wall: No suspicious bony abnormalities. Soft tissues appear unremarkable. IMPRESSION: Slight increased retrocardiac streaky opacities on lateral view as above. Developing airspace disease such as pneumonia cannot be excluded. Dictated by: Sabrina Menendez M.D. on 05/17/2019 at 9:15 Approved by: Sabrina Menendez M.D. on 05/17/2019 at 9:16
[2019-05-17 09:17] LABS: Influenza A - CEPHEID Flu A NEGATIVE (NEGATIVE); Influenza B - CEPHEID Flu B NEGATIVE (NEGATIVE)
[2019-05-17] MEDS: ACETAMINOPHEN 325 MG TABLET 650 MG PO ×2 (09:18→16:59)
[2019-05-17] MEDS: ALBUTEROL/IPRATROPIUM 3 ML AMPUL INH (09:35)
[2019-05-17 10:18] LABS: Add Manual Diff / Slide Review NO; Basophils Absolute Auto 0 /uL (0-100); Basophils Percent Auto 0.5 % (0-2); Eosinophils Absolute Auto 100 /uL (0-450); Eosinophils Percent Auto 1.4 % (2-4); Hemoglobin 13.5 g/dL (12.0-16.0); Lymphocytes Absolute Auto 600 /uL (1100-4500); Lymphocytes Percent Auto 8.8 % (25-40); Mean Corpuscular HGB Conc 34.7 % (30-36); Mean Corpuscular Hemoglobin 30.9 PG (26-34); Mean Corpuscular Volume 88.9 fL (80-100); Monocytes Absolute Auto 500 /uL (0-900); Monocytes Percent Auto 7.1 % (3-14); Neutrophils Absolute Auto 6100 /uL (1500-7000); Neutrophils Percent Auto 82.2 % (50-75); Platelet Count 142 X10^3/uL (150-400); Red Blood Cell Count 4.38 X10^6/uL (4.0-5.2); Red Cell Distribution Width 13.4 % (11.6-14.8); White Blood Cell Count 7.4 X10^3/uL (4.5-11.0)
[2019-05-17 10:26] LABS: Alanine Aminotransferase 20 IU/L (<35); Albumin 4.5 g/dL (3.5-5.0); Albumin Globulin Ratio 1.4 (1.0-2.8); Alkaline Phosphatase 70 U/L (38-126); Aspartate Aminotransferase 29 IU/L (14-36); BUN Creatinine Ratio 13.3 (6-22); Bilirubin Total 1.1 mg/dL (0.2-1.3); Blood Urea Nitrogen 12 mg/dL (7-17); Calcium 10.1 mg/dL (8.4-10.2); Carbon Dioxide 35 mmol/L (22-32); Chloride 93 mmol/L (98-107); Estimated Glomerular Filt Rate > 60.0 mL/min (>60); Globulin 3.3 g/dL (1.7-4.1); Glucose 140 mg/dL (80-110); HEMOLYSIS < 15 (0-50); Lactate (Lactic Acid) 0.7 mmol/L (0.7-2.1); Sodium 135 mmol/L (137-145); Total Protein 7.8 g/dL (6.3-8.2)
[2019-05-17 10:41] LABS: Fractionated Inspired Oxygen 0.28; HCO3 ABG 32 mmol/L (22-26); Oxygen Saturation ABG 94 % (95-100); PCO2 ABG 46.4 mmHg (35-45); PO2 ABG 67 mmHg (80-100); TCO2 ABG 33 mmol/L (21-31); pH ABG 7.45 (7.35-7.45)
[2019-05-17 10:44] LABS: D Dimer 456 ng/mL (<230)
[2019-05-17] MEDS: CEFTRIAXONE 1 GM/50 ML FROZ.PIGGY IV (10:47)
[2019-05-17] MEDS: SODIUM CHLORIDE 0.9% 2,313.33 ML 771.11 ML IV (10:47)
[2019-05-17] MEDS: AZITHROMYCIN 500 MG in DEXTROSE 5% IN WATER 250 ML IV (11:03)
[2019-05-17 13:23] LABS: Adenovirus Not Detected (Not Detect); Bordetella pertussis Not Detected (Not Detect); Chlamydophila pneumoniae Not Detected (Not Detect); Coronavirus 229E Not Detected (Not Detect); Coronavirus HKU1 Not Detected (Not Detect); Coronavirus NL 63 Not Detected (Not Detect); Coronavirus OC43 Not Detected (Not Detect); Human Metapneumovirus Detected (Not Detect); Human Rhinovirus/Enterovirus Not Detected (Not Detect); Influenza A Not Detected (Not Detect); Influenza B Not Detected (Not Detect); Mycoplasma pneumoniae Not Detected (Not Detect); Parainfluenza Virus 1 Not Detected (Not Detect); Parainfluenza Virus 2 Not Detected (Not Detect); Parainfluenza Virus 3 Not Detected (Not Detect); Parainfluenza Virus 4 Not Detected (Not Detect); Respiratory Syncytial Virus Not Detected (Not Detect)
--- NOTE | 2019-05-17 14:42 | P.HP_ITS ---
History of Present Illness History of Present Illness Date Patient Seen: 05/17/19 Time Patient Seen: 14:00 Chief complaint: bad cough,fever last night, chills Narrative: Patient is a 64-year-old female, nonsmoker, no history of asthma or COPD, presents with complaints of fever, cough, headache and myalgias. Symptoms started 3 days ago. She had temp over 101 last night. This a.m. she felt more lethargic and generally worse prompting her to come to the ER. Her cough has been nonproductive. She was treated in February for outpatient pneumonia with course of doxycycline. Vitals in ER were temp 100.3?, BP 141/74, pulse 90, respirations 20-25. Her O2 sat was in mid 80s but increased to 100% with cough and deep breathing. ABG PO2 67 on 2 L nasal cannula, pH 7.45, pCO2 46. Chest x- ray showed retrocardiac streaky opacities rather similar to her x-ray in [facility]. Respiratory PCR positive for human metapneumovirus, negative for influenza. Labs: WBC 7.4, lactic acid normal, procalcitonin 0.1 normal. She has not recently traveled abroad and has not been in close contact with traveler's from [place]. Patient History Medical History (Updated 05/17/19 @ 16:48 by Vinny Yang MD) Allergic rhinitis (Acute) HTN (hypertension) (Acute) Hypothyroidism (acquired) (Acute) Family & Social History Social History: household members spouse Prior Living Arrangements House Safety & Behavioral: Feels Safe in Current Yes Environment Been Physically Hurt or No Threatened By a Person Suicidal Ideation Description None Suicide Plan Description No Plan Tobacco & Substance use: Smoking Status Never smoker Substance Use Type does not use Meds Home Medications and Allergies Home Medications Medication Instructions Recorded Confirmed Type cetirizine 10 mg PO DAILY #0 tab 12/06/15 05/17/19 History fluticasone propionate 1 spray INTRANASAL DAILY #0 12/06/15 05/17/19 History hydrochlorothiazide 25 mg PO DAILY #0 12/06/15 05/17/19 History levothyroxine 0.112 mg PO DAILY #0 12/06/15 05/17/19 History montelukast [Singulair] 10 mg PO QPM #0 tab 12/06/15 05/17/19 History Super B Vitamin 1 tab PO DAILY 05/17/19 05/17/19 History cholecalciferol (vitamin D3) 5,000 unit PO DAILY 05/17/19 05/17/19 History [Vitamin D3] oxybutynin chloride 10 mg PO DAILY 05/17/19 05/17/19 History potassium chloride 10 meq PO DAILY 05/17/19 05/17/19 History propranolol 120 mg PO QPM 05/17/19 05/17/19 History trazodone 50 mg PO QPM 05/17/19 05/17/19 History Allergies Allergy/AdvReac Type Severity Reaction Status Date / Time erythromycin base Allergy Unknown Verified 05/17/19 08:31 [ERYTHROMYCIN BASE] Penicillins [PENICILLINS] Allergy Unknown Verified 05/17/19 08:31 Sulfa (Sulfonamide Allergy Unknown Verified 05/17/19 08:31 Antibiotics) [SULFA (SULFONAMIDE ANTIBIOTICS)] Review of Systems Review of Systems ROS: Yes All systems reviewed with the patient and are negative except as otherwise documented Exam Vital Signs (past 8 hours): - 05/17/19 08:31 05/17/19 09:18 05/17/19 09:38 Temperature 100.0 F H 100.0 F H Pulse Rate 90 74 Respiratory Rate 20 14 Blood Pressure 141/74 H Blood Pressure [Left Arm] Pulse Oximetry 94 97 05/17/19 09:49 05/17/19 11:16 05/17/19 12:11 Temperature 100.3 F H 98.7 F Pulse Rate 93 H 87 Respiratory Rate 25 H 22 Blood Pressure Blood Pressure [Left Arm] 155/79 H 134/68 Pulse Oximetry 92 95 Oxygen Delivery Method Room Air Narrative Exam Narrative: GENERAL: This is an alert well-nourished, well-developed patient, with a cough. HEAD: Atraumatic. Normocephalic. EYES: Pupils equal, round and reactive. Extraocular motions intact. No scleral icterus. No injection or drainage. OROPHARYNX: moist mucosa NECK: Trachea midline. No JVD or lymphadenopathy. CARDIOVASCULAR: Regular rate and rhythm without murmurs, gallops, or rubs. RESPIRATORY: Diffuse inspiratory and expiratory bilateral wheeze. GASTROINTESTINAL: Abdomen nondistended, soft, non-tender. No hepato- splenomegaly, or palpable masses. EXTREMITIES: No edema. NEUROLOGICAL: Alert, well oriented, speech is intact, normal bilateral upper and lower extremity strength SKIN: warm, dry, no rash Objective Labs Result Diagrams: 05/17/19 10:00 05/17/19 10:00 Labs: Laboratory Results - last 24 hr 05/17/19 05/17/19 05/17/19 08:30 09:50 10:00 WBC 7.4 RBC 4.38 Hgb 13.5 Hct 39.0 MCV 88.9 MCH 30.9 MCHC 34.7 RDW 13.4 Plt Count 142 L Neut % (Auto) 82.2 H Lymph % (Auto) 8.8 L Cottle % (Auto) 7.1 Eos % (Auto) 1.4 L Baso % (Auto) 0.5 Neut # (Auto) 6100 Lymph # (Auto) 600 L Cottle # (Auto) 500 Eos # (Auto) 100 Baso # (Auto) 0 D-Dimer ABG pH 7.45 ABG pCO2 46.4 H ABG pO2 67 L ABG HCO3 32 H ABG Total CO2 33 H ABG O2 Saturation 94 L ABG Base Excess 8.0 H FiO2 0.28 Sodium Potassium Chloride Carbon Dioxide BUN Creatinine Estimated GFR BUN/Creatinine Ratio Glucose Lactate Calcium Total Bilirubin AST ALT Alkaline Phosphatase Total Protein Albumin Globulin Albumin/Globulin Ratio Procalcitonin Chlamy pneumoniae PCR Adenovirus (PCR) B.parapertussis DNA PCR Coronavirus OC43 (PCR) Coronavirus HKU1 (PCR) Coronavirus 229E (PCR) Coronavirus NL63 (PCR) Human Metapneumovir PCR Influenza A (RT-PCR) Flu a negative Influenza Type A (PCR) Influenza B (RT-PCR) Flu b negative Influenza Type B (PCR) M. pneumoniae (PCR) Parainfluenza 1 (PCR) Parainfluenza 2 (PCR) Parainfluenza 3 (PCR) Parainfluenza 4 (PCR) RSV (PCR) Entero/Rhino (PCR) 05/17/19 05/17/19 05/17/19 10:00 10:00 10:00 WBC RBC Hgb Hct MCV MCH MCHC RDW Plt Count Neut % (Auto) Lymph % (Auto) Cottle % (Auto) Eos % (Auto) Baso % (Auto) Neut # (Auto) Lymph # (Auto) Cottle # (Auto) Eos # (Auto) Baso # (Auto) D-Dimer ABG pH ABG pCO2 ABG pO2 ABG HCO3 ABG Total CO2 ABG O2 Saturation ABG Base Excess FiO2 Sodium 135 L Potassium 4.0 Chloride 93 L Carbon Dioxide 35 H BUN 12 Creatinine 0.90 Estimated GFR > 60.0 BUN/Creatinine Ratio 13.3 Glucose 140 H Lactate 0.7 Calcium 10.1 Total Bilirubin 1.1 AST 29 ALT 20 Alkaline Phosphatase 70 Total Protein 7.8 Albumin 4.5 Globulin 3.3 Albumin/Globulin Ratio 1.4 Procalcitonin 0.10 Chlamy pneumoniae PCR Adenovirus (PCR) B.parapertussis DNA PCR Coronavirus OC43 (PCR) Coronavirus HKU1 (PCR) Coronavirus 229E (PCR) Coronavirus NL63 (PCR) Human Metapneumovir PCR Influenza A (RT-PCR) Influenza Type A (PCR) Influenza B (RT-PCR) Influenza Type B (PCR) M. pneumoniae (PCR) Parainfluenza 1 (PCR) Parainfluenza 2 (PCR) Parainfluenza 3 (PCR) Parainfluenza 4 (PCR) RSV (PCR) Entero/Rhino (PCR) 05/17/19 05/17/19 10:00 12:08 WBC RBC Hgb Hct MCV MCH MCHC RDW Plt Count Neut % (Auto) Lymph % (Auto) Cottle % (Auto) Eos % (Auto) Baso % (Auto) Neut # (Auto) Lymph # (Auto) Cottle # (Auto) Eos # (Auto) Baso # (Auto) D-Dimer 456 H ABG pH ABG pCO2 ABG pO2 ABG HCO3 ABG Total CO2 ABG O2 Saturation ABG Base Excess FiO2 Sodium Potassium Chloride Carbon Dioxide BUN Creatinine Estimated GFR BUN/Creatinine Ratio Glucose Lactate Calcium Total Bilirubin AST ALT Alkaline Phosphatase Total Protein Albumin Globulin Albumin/Globulin Ratio Procalcitonin Chlamy pneumoniae PCR Not detected Adenovirus (PCR) Not detected B.parapertussis DNA PCR Not detected Coronavirus OC43 (PCR) Not detected Coronavirus HKU1 (PCR) Not detected Coronavirus 229E (PCR) Not detected Coronavirus NL63 (PCR) Not detected Human Metapneumovir PCR Detected H Influenza A (RT-PCR) Influenza Type A (PCR) Not detected Influenza B (RT-PCR) Influenza Type B (PCR) Not detected M. pneumoniae (PCR) Not detected Parainfluenza 1 (PCR) Not detected Parainfluenza 2 (PCR) Not detected Parainfluenza 3 (PCR) Not detected Parainfluenza 4 (PCR) Not detected RSV (PCR) Not detected Entero/Rhino (PCR) Not detected Assessment & Plan Assessment & Plan narrative: 1. Acute bronchitis, likely viral -patient presenting with several days of fever, cough, fatigue and malaise. She had transient drop in O2 sat but not really persistent hypoxia. Chest x-ray with retrocardiac streaky density which looks similar to an x-ray from last February and probably not acute pneumonia. She has normal WBC, procalcitonin, and lactate. Travel history not suggestive of coronavirus. She has wheezing on exam. -respiratory PCR positive for human metapneumovirus -treatments: Albuterol nebulizer q.4 hours -Solu-Medrol 60 mg IV x1 then prednisone 40 mg q.a.m. -Rocephin 1 g Q 24 and azithromycin 500 mg IV q.d. in case there is superimposed bacterial infection -supplemental O2 as needed 2. Hypertension -continue routine meds 3. Hypothyroidism -continue levothyroxine per home routine Patient admitted to hospital observation services with expected less than 1 midnight stay. Quality VTE Deep Vein Thrombosis/Pulmonary Embolism Present on Admission: No
--- NOTE | 2019-05-17 15:46 | PC.NURSE ---
Admission from ER Able to tranfer to bed with SBA. Up to void, UA sent to lab, per ER request. Pt has substantial productive cough noted. Afebrile. isolation droplet for Human metavirus, SOB with conversation, 2L NC in place. Spo2 95-96% Coarse lungs exp wheeze and rhonchi dim to bases. at bedside. Call light in reach. Add Updated Dr Yang of continued PRAKASH. APAP on emar.
[2019-05-17] MEDS: MONTELUKAST 10 MG TABLET PO (16:20)
[2019-05-17] MEDS: methylPREDNISolone 125 MG/2 ML VIAL 60 MG IV (16:20)
[2019-05-17] MEDS: PROPRANOLOL ER 60 MG CAPSULE 120 MG PO (16:42)
--- NOTE | 2019-05-17 17:42 | PC.NURSE ---
Addendum entered by Alberta Bajwa R.N. 05/17/19 21:05: 2100- 02 up to 3 liters cannula to keep saturation at 92 or greater. Patient has a wet sounding cough but states she has not been bringing anything up. MRSA swab sent per protocol. Fever has broke and patient reports she feels better. Patient advised to call for assist if she needs to get oob. Will monitor. Original Note: 1700- Patient states she feels cold. Patient has rigors temp oral 100.3 medicated per order.
[2019-05-17] MEDS: ALBUTEROL 2.5 MG/3 ML NEB (ADULT) INH ×2 (19:43→23:37)
[2019-05-17] MEDS: TRAZODONE 50 MG TABLET PO (20:42)
[2019-05-18] VITALS (18 sets, daily range): BP systolic 113–142; BP diastolic 69–75; PULSE 66–89; RESP 14–20; TEMP 36.1–36.9; O2SAT 90–100
--- NOTE | 2019-05-18 01:17 | PC.NURSE ---
Report to [facility] in Acute Care.
--- NOTE | 2019-05-18 01:56 | PC.NURSE ---
Patient transferred from ICU to room 212. Patient wore mask for journey down the odom in her bed. Alert and oriented, or S/O is with patient and will be staying the night. Very hoarse cough, coarse ,rhonchi lungs. IV is saline locked , no edema,afebrile, 3L nasal canulla, patient helped to rest room by spouse, walks well. Stated she voided. Whiteboard updated. +bowel tones.
[2019-05-18] MEDS: ALBUTEROL 2.5 MG/3 ML NEB (ADULT) INH ×4 (06:18→17:58)
[2019-05-18] MEDS: LEVOTHYROXINE 112 MCG TABLET PO (07:37)
--- NOTE | 2019-05-18 09:09 | P.PN_ITS ---
Subjective Subjective Date Patient Seen: 05/18/19 Interval history: Patient has persistent cough but fevers seems to be going away. Exam Vital Signs (past 8 hours): - 05/18/19 01:14 05/18/19 01:30 05/18/19 05:00 Temperature 97.5 F L Pulse Rate 73 Respiratory Rate 18 Blood Pressure 136/75 Pulse Oximetry 93 97 94 05/18/19 06:18 Temperature Pulse Rate 84 Respiratory Rate 20 Blood Pressure Pulse Oximetry 94 Oxygen Delivery Method Nasal Cannula Oxygen Flow Rate 3 Narrative Exam Narrative: GENERAL: Patient is alert, cooperative with a dry cough HEENT: Head normocephalic, atraumatic. Mucous membranes moist. CHEST: Congested with inspiratory and expiratory rhonchi bilaterally CARDIAC: Regular rate and rhythm. ABDOMEN: Nondistended, soft, nontender EXTREMITIES: no edema. NEUROLOGICAL: Alert, pleasant, no focal findings SKIN: Warm, dry, no petechiae, no rash Objective Labs Result Diagrams: 05/17/19 10:00 05/17/19 10:00 Labs: Laboratory Results - last 24 hr 05/17/19 05/17/19 05/17/19 08:30 10:00 10:00 WBC 7.4 RBC 4.38 Hgb 13.5 Hct 39.0 MCV 88.9 MCH 30.9 MCHC 34.7 RDW 13.4 Plt Count 142 L Neut % (Auto) 82.2 H Lymph % (Auto) 8.8 L Republic % (Auto) 7.1 Eos % (Auto) 1.4 L Baso % (Auto) 0.5 Neut # (Auto) 6100 Lymph # (Auto) 600 L Republic # (Auto) 500 Eos # (Auto) 100 Baso # (Auto) 0 D-Dimer ABG pH ABG pCO2 ABG pO2 ABG HCO3 ABG Total CO2 ABG O2 Saturation ABG Base Excess FiO2 Sodium Potassium Chloride Carbon Dioxide BUN Creatinine Estimated GFR BUN/Creatinine Ratio Glucose Lactate Calcium Total Bilirubin AST ALT Alkaline Phosphatase Total Protein Albumin Globulin Albumin/Globulin Ratio Procalcitonin 0.10 Nasal Screen MRSA (PCR) Chlamy pneumoniae PCR Adenovirus (PCR) B.parapertussis DNA PCR Coronavirus OC43 (PCR) Coronavirus HKU1 (PCR) Coronavirus 229E (PCR) Coronavirus NL63 (PCR) Human Metapneumovir PCR Influenza A (RT-PCR) Flu a negative Influenza Type A (PCR) Influenza B (RT-PCR) Flu b negative Influenza Type B (PCR) M. pneumoniae (PCR) Parainfluenza 1 (PCR) Parainfluenza 2 (PCR) Parainfluenza 3 (PCR) Parainfluenza 4 (PCR) RSV (PCR) Entero/Rhino (PCR) 05/17/19 05/17/19 05/17/19 10:00 10:00 10:00 WBC RBC Hgb Hct MCV MCH MCHC RDW Plt Count Neut % (Auto) Lymph % (Auto) Republic % (Auto) Eos % (Auto) Baso % (Auto) Neut # (Auto) Lymph # (Auto) Republic # (Auto) Eos # (Auto) Baso # (Auto) D-Dimer 456 H ABG pH ABG pCO2 ABG pO2 ABG HCO3 ABG Total CO2 ABG O2 Saturation ABG Base Excess FiO2 Sodium 135 L Potassium 4.0 Chloride 93 L Carbon Dioxide 35 H BUN 12 Creatinine 0.90 Estimated GFR > 60.0 BUN/Creatinine Ratio 13.3 Glucose 140 H Lactate 0.7 Calcium 10.1 Total Bilirubin 1.1 AST 29 ALT 20 Alkaline Phosphatase 70 Total Protein 7.8 Albumin 4.5 Globulin 3.3 Albumin/Globulin Ratio 1.4 Procalcitonin Nasal Screen MRSA (PCR) Chlamy pneumoniae PCR Adenovirus (PCR) B.parapertussis DNA PCR Coronavirus OC43 (PCR) Coronavirus HKU1 (PCR) Coronavirus 229E (PCR) Coronavirus NL63 (PCR) Human Metapneumovir PCR Influenza A (RT-PCR) Influenza Type A (PCR) Influenza B (RT-PCR) Influenza Type B (PCR) M. pneumoniae (PCR) Parainfluenza 1 (PCR) Parainfluenza 2 (PCR) Parainfluenza 3 (PCR) Parainfluenza 4 (PCR) RSV (PCR) Entero/Rhino (PCR) 05/17/19 05/17/19 05/17/19 10:15 12:08 21:00 WBC RBC Hgb Hct MCV MCH MCHC RDW Plt Count Neut % (Auto) Lymph % (Auto) Republic % (Auto) Eos % (Auto) Baso % (Auto) Neut # (Auto) Lymph # (Auto) Republic # (Auto) Eos # (Auto) Baso # (Auto) D-Dimer ABG pH 7.45 ABG pCO2 46.4 H ABG pO2 67 L ABG HCO3 32 H ABG Total CO2 33 H ABG O2 Saturation 94 L ABG Base Excess 8.0 H FiO2 0.28 Sodium Potassium Chloride Carbon Dioxide BUN Creatinine Estimated GFR BUN/Creatinine Ratio Glucose Lactate Calcium Total Bilirubin AST ALT Alkaline Phosphatase Total Protein Albumin Globulin Albumin/Globulin Ratio Procalcitonin Nasal Screen MRSA (PCR) Negative for mrsa Chlamy pneumoniae PCR Not detected Adenovirus (PCR) Not detected B.parapertussis DNA PCR Not detected Coronavirus OC43 (PCR) Not detected Coronavirus HKU1 (PCR) Not detected Coronavirus 229E (PCR) Not detected Coronavirus NL63 (PCR) Not detected Human Metapneumovir PCR Detected H Influenza A (RT-PCR) Influenza Type A (PCR) Not detected Influenza B (RT-PCR) Influenza Type B (PCR) Not detected M. pneumoniae (PCR) Not detected Parainfluenza 1 (PCR) Not detected Parainfluenza 2 (PCR) Not detected Parainfluenza 3 (PCR) Not detected Parainfluenza 4 (PCR) Not detected RSV (PCR) Not detected Entero/Rhino (PCR) Not detected Assessment & Plan Assessment & Plan narrative: 1. Acute bronchitis, likely viral -patient presenting with several days of fever, cough, fatigue and malaise. She has transient drops in O2 sat during cough spasms but not really persistent hypoxia. Chest x-ray with retrocardiac streaky density which looks similar to an x-ray from last February and probably not acute pneumonia. She has normal WBC, procalcitonin, and lactate. Travel history not suggestive of coronavirus. She has wheezing on exam. -respiratory PCR positive for human metapneumovirus -treatments: Continue Albuterol nebulizer q.4 hours -Solu-Medrol 60 mg IV x1 then prednisone 40 mg q.a.m. starting a.m. 05/18 -continue Rocephin 1 g Q 24 and azithromycin 500 mg IV q.d. in case there is superimposed bacterial infection -supplemental O2 as needed, at bedside with O2 off her sats would drop to 89 % when coughing and then back up to low 90s -codeine with guaifenesin liquid 10 mils q.4 hours as needed cough 2. Hypertension -continue routine meds 3. Hypothyroidism -continue levothyroxine per home routine Patient needs additional hospital day due to drops in O2 sats. Quality VTE Deep Vein Thrombosis/Pulmonary Embolism Present on Admission: No
[2019-05-18] MEDS: CEFTRIAXONE 1 GM/50 ML FROZ.PIGGY IV (09:12)
[2019-05-18] MEDS: ENOXAPARIN 40 MG/0.4 ML SYRINGE SUBCUT (09:12)
[2019-05-18] MEDS: FLUTICASONE 120 SPRAY/16 GM SPRAY.SUSP NASAL (09:12)
[2019-05-18] MEDS: hydroCHLOROthiazide 25 MG TABLET PO (09:13)
[2019-05-18] MEDS: POTASSIUM CHLORIDE 10 MEQ TAB PO (09:13)
[2019-05-18] MEDS: ACETAMINOPHEN 325 MG TABLET 650 MG PO ×2 (09:13→20:44)
[2019-05-18] MEDS: predniSONE 20 MG TABLET 40 MG PO (09:13)
[2019-05-18] MEDS: LORATADINE 10 MG TABLET PO (10:24)
[2019-05-18] MEDS: CODEINE/GUAIFENESIN LIQUID 5ML UDC 10 ML PO ×3 (10:25→20:48)
[2019-05-18] MEDS: OXYBUTYNIN 5 MG ER TAB 10 MG PO (10:30)
[2019-05-18] MEDS: AZITHROMYCIN 500 MG in DEXTROSE 5% IN WATER 250 ML IV (10:49)
[2019-05-18 15:04] LABS: Methicillin-resistant gene Detected (Not Detect)
[2019-05-18 15:05] LABS: Staphylococcus species Detected (Not Detect)
[2019-05-18 15:07] LABS: Enterococcus species Not Detected (Not Detect); Listeria monocytogenes Not Detected (Not Detect)
[2019-05-18 15:09] LABS: Streptococcus agalactiae (Gr B Not Detected (Not Detect); Streptococcus species Not Detected (Not Detect)
[2019-05-18 15:10] LABS: Acinetobacter baumannii Not Detected (Not Detect); Enterobacteriaceae species Not Detected (Not Detect); Streptococcus pneumonia Not Detected (Not Detect); Streptococcus pyogenes (Gr A) Not Detected (Not Detect)
[2019-05-18 15:11] LABS: Candida albicans Not Detected (Not Detect); Candida glabrata Not Detected (Not Detect); Candida krusei Not Detected (Not Detect); Candida parapsilosis Not Detected (Not Detect); Candida tropicalis Not Detected (Not Detect); E. coli Not Detected (Not Detect); Enterobacter cloacae complex Not Detected (Not Detect); Haemophilus influenzae Not Detected (Not Detect); KPC (carbapenem-resist gene) Not Detected (Not Detect); Neisseria meningitidis Not Detected (Not Detect); Proteus species Not Detected (Not Detect); Pseudomonas aeruginosa Not Detected (Not Detect); Serratia marcescens Not Detected (Not Detect)
--- NOTE | 2019-05-18 15:59 | CM.DANOTE ---
Discharge Planning/Care Management DCP: assessment: case received and discussed in Team Rounds. Pt is a 64 year old female who lives in [place]. PCP: Dr. Lencho Sawyer is listed. Payer: [employer] Preferred Admission status: OBS: confirmed by UR RN Lyla. Dr. Yang stated in Rounds that pt is admitted with dx of viral bronchitis and with impressive cough in which she does desat to room air/80s. He confirmed he plans to keep to here for another day with a d/c back to her home setting on Tuesday. Caseload triage dictates hand off to DCP team to follow prn tomorrow for any d/c needs that may arise but none have been identified at this time by the care team members. CM Discharge Assessment Start: 05/18/19 15:57 Freq: Status: Active Protocol: Document 05/18/19 15:58 ITV (Rec: 05/18/19 15:59 ITV [id number]) Discharge Planning Assessment Advance Directives? No History Provided By Medical Record Prior Living Arrangements House Household Members spouse Comment [facility]: [phone] Is patient alert and oriented? Yes Review Status In Process
[2019-05-18] MEDS: MONTELUKAST 10 MG TABLET PO (17:43)
[2019-05-18] MEDS: TRAZODONE 50 MG TABLET PO (17:43)
[2019-05-18] MEDS: PROPRANOLOL ER 60 MG CAPSULE 120 MG PO (17:45)
[2019-05-19] VITALS (8 sets, daily range): BP systolic 122–134; BP diastolic 76–80; PULSE 63–75; RESP 16–20; TEMP 36.4–36.6; O2SAT 89–98
[2019-05-19] MEDS: MELATONIN 3 MG TABLET 6 MG PO (00:08)
[2019-05-19] MEDS: ALBUTEROL 2.5 MG/3 ML NEB (ADULT) INH ×3 (00:15→09:33)
--- NOTE | 2019-05-19 01:29 | PC.NURSE ---
Pt. requesting her Trazadone was administered @ 8698. Pt. states I should take that before I go to bed. KARLY Baker notified that pt. requesting sleeping pills. Ordered Melatonin 6 mg. & was admin. @ 0008. Will cont. POC & monitor.
[2019-05-19] MEDS: CODEINE/GUAIFENESIN LIQUID 5ML UDC 10 ML PO ×2 (03:48→10:16)
[2019-05-19] MEDS: LEVOTHYROXINE 112 MCG TABLET PO (06:09)
--- NOTE | 2019-05-19 08:58 | PM.DS.1 ---
History of Present Illness History of Present Illness Chief complaint: bad cough,fever last night, chills Narrative: Patient is a 64-year-old female, nonsmoker, no history of asthma or COPD, presents with complaints of fever, cough, headache and myalgias. Symptoms started 3 days ago. She had temp over 101 last night. This a.m. she felt more lethargic and generally worse prompting her to come to the ER. Her cough has been nonproductive. She was treated in February for outpatient pneumonia with course of doxycycline. Vitals in ER were temp 100.3?, BP 141/74, pulse 90, respirations 20-25. Her O2 sat was in mid 80s but increased to 100% with cough and deep breathing. ABG PO2 67 on 2 L nasal cannula, pH 7.45, pCO2 46. Chest x-ray showed retrocardiac streaky opacities rather similar to her x-ray in February. Respiratory PCR positive for human metapneumovirus, negative for influenza. Labs: WBC 7.4, lactic acid normal, procalcitonin 0.1 normal. She has not recently traveled abroad and has not been in close contact with traveler's from [place]. Discharge Providers Provider Date of admission: 05/17/19 12:08 Discharge Date: 05/19/19 Primary care physician: Lencho Sawyer DO Discharge provider: Vinny Yang MD Summary Hospital Course Discharge Diagnosis: 1. Acute bronchitis 2. Hypertension 3. Hypothyroidism Hospital Course: Acute bronchitis, likely viral -patient presenting with several days of fever, cough, fatigue and malaise. She has transient drops in O2 sat during cough spasms but not really persistent hypoxia. Chest x-ray with retrocardiac streaky density which looks similar to an x-ray from last February and probably not acute pneumonia. She has normal WBC, procalcitonin, and lactate. Travel history not suggestive of coronavirus. She has wheezing on exam. -respiratory PCR positive for human metapneumovirus -blood culture from admission 1 of 2 positive for Staph in pediatric bottle is likely contaminant, repeat set of blood cultures from 05/18 remain negative -patient was treated with Rocephin, Zithromax in case bacterial superinfection, prednisone and albuterol nebulizer with clinical improvement -transient hypoxia during cough episodes now resolved and patient feels in improved condition to return home -on exam today she appears comfortable, is afebrile, O2 sat 93% room air, and has mild bilateral wheeze and a few crackles in the lung bases -codeine with guaifenesin liquid 10 mils q.4 hours as needed cough Status at Discharge Cognitive/behavioral status at discharge: oriented Functional status at discharge: independent ambulation Overall status at discharge: patient is progressing back to baseline Time Spent with Patient Time spent: Greater than 30 minutes Exam Vital Signs (past 8 hours): - 05/19/19 04:25 05/19/19 05:00 05/19/19 05:24 Temperature 97.8 F Pulse Rate 73 Respiratory Rate 16 Blood Pressure 134/80 Pulse Oximetry 89 L 93 93 05/19/19 05:33 Temperature Pulse Rate 75 Respiratory Rate 18 Blood Pressure Pulse Oximetry 93 Oxygen Delivery Method Room Air Oxygen Flow Rate 0 Objective Labs Result Diagrams: 05/17/19 10:00 05/17/19 10:00 Labs: Laboratory Results - last 24 hr 05/18/19 10:00 A. baumannii (PCR) Not detected Amelie albicans (PCR) Not detected C. glabrata (PCR) Not detected C. krusei (PCR) Not detected C. parapsilosis (PCR) Not detected C. tropicalis (PCR) Not detected Enterobacteriac sp PCR Not detected E. cloacae complex PCR Not detected Enterococcus sp PCR Not detected E. coli (PCR) Not detected H. influenzae (PCR) Not detected Klebsiella oxytoca PCR Not detected Klebsiella pneumoniae Not detected List. monocytogenes PCR Not detected N. meningitidis (PCR) Not detected Proteus species (PCR) Not detected Serratia marcescens PCR Not detected Staphylococcus sp PCR Detected H Staph aureus (PCR) Not detected mecA-Methicil Res Gene Detected H Streptococcus sp PCR Not detected Group A Strep (PCR) Not detected Strep agalactiae (PCR) Not detected Strep pneumoniae (PCR) Not detected P. aeruginosa (PCR) Not detected Yi/B-Vanco Res Genes Not Reportable KPC-Carbap Res Gene PCR Not detected Discharge Plan Discharge Plan Patient Disposition: Home Discharge orders & Medications Prescriptions: New cefuroxime axetil 500 mg tablet 500 mg PO BID Qty: 4 RF: 0 prednisone 20 mg tablet 40 mg PO DAILY Qty: 4 RF: 0 albuterol sulfate 90 mcg/actuation HFA aerosol inhaler 2 puff INHALATION Q4H PRN (Reason: shortness of breath or wheezing) Qty: 6.7 RF: 0 (DME) inhaler,assist devices,access Device See Rx Instructions .ROUTE .MEDSUPPLY Qty: 1 RF: 0 codeine-guaifenesin [Guaifenesin AC] 10-100 mg/5 mL liquid 10 ml PO Q4-6H PRN (Reason: cough) Qty: 120 RF: 0 Continued hydrochlorothiazide 25 MG tablet 25 mg PO DAILY Qty: 0 RF: 0 levothyroxine 112 MCG tablet 0.112 mg PO DAILY Qty: 0 RF: 0 cetirizine 10 MG tablet 10 mg PO DAILY Qty: 0 RF: 0 montelukast [Singulair] 10 MG tablet 10 mg PO QPM Qty: 0 RF: 0 fluticasone propionate 16 GM spray,suspension 1 spray Intranasal DAILY Qty: 0 RF: 0 trazodone 50 mg tablet 50 mg PO QPM RF: 0 oxybutynin chloride 10 mg tablet extended release 24hr 10 mg PO DAILY RF: 0 propranolol 120 mg capsule,extended release 24 hr 120 mg PO QPM RF: 0 potassium chloride 10 mEq tablet,ER particles/crystals 10 meq PO DAILY RF: 0 cholecalciferol (vitamin D3) [Vitamin D3] 125 mcg (5,000 unit) Tablet 5,000 unit PO DAILY RF: 0 Super B Vitamin 1 tab PO DAILY RF: 0 Follow up/Referrals: Lencho Sawyer DO [Primary Care Provider] - Visit Report/Discharge Packet Instructions: DI for Pneumonia -- Adult Discharge Data Primary Care Provider: Lencho Sawyer Attending Provider: Annamarie Arias Admit Date/Time: 05/17/19 12:08 Quality VTE Deep Vein Thrombosis/Pulmonary Embolism Present on Admission: No
[2019-05-19] MEDS: ENOXAPARIN 40 MG/0.4 ML SYRINGE SUBCUT (10:13)
[2019-05-19] MEDS: predniSONE 20 MG TABLET 40 MG PO (10:14)
[2019-05-19] MEDS: OXYBUTYNIN 5 MG ER TAB 10 MG PO (10:14)
[2019-05-19] MEDS: AZITHROMYCIN 250 MG TABLET 500 MG PO (10:14)
[2019-05-19] MEDS: POTASSIUM CHLORIDE 10 MEQ TAB PO (10:15)
[2019-05-19] MEDS: LORATADINE 10 MG TABLET PO (10:15)
[2019-05-19] MEDS: CEFTRIAXONE 1 GM/50 ML FROZ.PIGGY IV (10:15)
[2019-05-19] MEDS: hydroCHLOROthiazide 25 MG TABLET PO (10:15)
[2019-05-19] MEDS: FLUTICASONE 120 SPRAY/16 GM SPRAY.SUSP NASAL (10:15)
[2019-05-19] MEDS: SODIUM CHLORIDE 0.9% FLUSH 10 ML IV (10:16)
== END 2019-05-19 11:50 | disposition home or self-care (01) ==
LOC: ED 09:47 → ICU 12:43 → AC 05-18 12:58 → ICU 05-18 13:08
PROVIDERS: Admitting Provider Internal Medicine; Emergency Provider Emergency Medicine; PCP Family Medicine; Referring Provider Emergency Medicine; Visit Provider Internal Medicine
DX: J20.8 Acute bronchitis due to other specified organisms (principal); R05 Cough; B97.81 Human metapneumovirus as the cause of diseases classified elsewhere; I10 Essential (primary) hypertension; E03.9 Hypothyroidism, unspecified
CPT/HCPCS: 36415; 36600; 71046; 80053; 82805; 83605; 84145; 85025; 85379; 87040; 87150; 87205; 87502; 87633; 87797; 94640; 94760; 96365; 96366; 96367; 96368; 96372; 96375; 99285; G0378; J1650; J2930; J7613

== ENCOUNTER → 2020-09-29 14:38 | Outpatient (CLI) | payer MEDICARE, OTHER, SELFPAY ==
[2019-05-17 12:24] VITALS: BMI 27.4
--- NOTE | 2020-09-29 14:42 | DI.MG.S_ITS ---
BILATERAL DIGITAL SCREENING MAMMOGRAM 3D/2D WITH CAD: 09/29/2020 CLINICAL: Routine screening. Family history of breast cancer. Comparison is made to exams dated: 06/03/2018 mammogram, 10/22/2016 mammogram, and 01/28/2014 mammogram - [facility]. There are scattered fibroglandular elements in both breasts. Current study was also evaluated with a Computer Aided Detection (CAD) system. There are benign calcifications in both breasts. No significant masses, calcifications, or other findings are seen in either breast. There has been no significant interval change. IMPRESSION: BENIGN There is no mammographic evidence of malignancy. A 1 year screening mammogram is recommended. This exam was interpreted at Station ID: [id number]. NOTE: For mammograms, a report in lay terms will be sent to the patient. Approximately 15% of breast malignancies will not be visualized mammographically. In the management of a palpable breast mass, a negative mammogram must not discourage biopsy of a clinically suspicious lesion. Electronically Signed By: Kale blake/[email or web address]:09/29/2020 16:12:09 letter sent: Normal Exam ACR BI-RADS Category 2: Benign Finding(s) 3342F
== END ==
PROVIDERS: PCP Internal Medicine; Referring Provider Internal Medicine; Visit Provider Internal Medicine
DX: Z12.31 Encounter for screening mammogram for malignant neoplasm of breast (principal); Z80.3 Family history of malignant neoplasm of breast
CPT/HCPCS: 77063; 77067